=== PATIENT | male | born 1935 | race Native Hawaiian/Other Pacific Islander ===

== ENCOUNTER → 2017-03-05 | Outpatient (CLI) | payer OTHER ==
--- NOTE | ~2017-03-05 | CNG ---
[facility] [place] [address] CYTO-NONGYN REPORT PROCEDURE Name: MIAHSCAR SR Room #: REG PIOTR Antwan#: [id number] Admission: 03/05/17 Date of : 31 Discharge: Report #: [id number] Path Case #: [id number] CYTOPATHOLOGY REPORT COLLECTION DATE: 03/05/2017 RECEIVED DATE: 03/05/2017 SUBMITTING PHYS: Dr. Milly Marinelli OTHER PHYS: Dr. Giuseppe Newman CLINICAL HISTORY: Pleural Effusion SPECIMEN(S) RECEIVED: A.Pleural fluid * * * * * * * * * * * * FINAL DIAGNOSIS: A. Pleural fluid: - No malignant cells identified. Mesothelial cells are present along with acute and chronic inflammatory cells. PATHOLOGIST: Tory Camacho M.D. REPORT ELECTRONICALLY SIGNED BY: Tory Camacho M.D. DATE/TIME: 03/08/2017 16:53 * * * * * * * * * * * * GROSS PATHOLOGY: A. Pleural fluid: The specimen is submitted unfixed, labeled "Rojelio Dooleyo ". Received by the Cytology Department is 13 mL of cloudy yellow fluid. One ThinPrep slide and a formalin fixed cell block were prepared. (mm 03.05.2017) FARMER VEGETABLE(S): [facility]IS Shen[facility] INITIAL CPT CODE(S): A; 33580, 19694 Professional services performed by [facility] at [facility] [address] , [place] [address] Technical services performed by [facility] at [address] [place] [address]., [address], [place] [address]. [facility] [address] [place] [address], [facility] [address] [place] [address] PH[address]: [phone] [facility] [address] [place] [address] CYTO-NONGYN REPORT PROCEDURE Name: SCAR DOLOEY Room #: REG PIOTR Moncada#: [id number] Admission: 03/05/17 Date of : 33 Discharge: Report #: [id number] Path Case #: [id number] DIRECTOR: Will Fenton M.D. * * * END OF REPORT * * *
[2017-03-05 13:21] LABS: HEMATOCRIT 41.8 % (42.0-52.0); HEMOGLOBIN 13.9 gm/dL (14.0-18.0); MCH 30.6 pg (26.0-34.0); MCHC 33.2 g/dL (28.0-37.0); MCV 92.2 fL (80.0-100.0); RBC 4.53 mil/uL (4.50-6.00); RDW 15.1 % (10.5-14.5)
[2017-03-05 13:33] LABS: PROTIME 10.2 Seconds (9.3-11.4)
[2017-03-05 13:37] LABS: CALCIUM 9.4 mg/dL (8.5-10.1); CREATININE 0.7 mg/dL (0.7-1.3); POTASSIUM 4.2 mmol/L (3.5-5.1)
[2017-03-05 14:58] LABS: BF NUCLEATED CELLS 1567; BF RBC 2018
[2017-03-05 15:01] LABS: COLOR YELLOW; MANUAL DIFF YES; TOTAL VOLUME 60 mL
[2017-03-05 15:02] LABS: CLARITY SLIGHTLY CLOUDY
[2017-03-05 15:49] LABS: BF MACROPHAGE 7; BF NEUTROPHILS 9
[2017-03-05 20:08] LABS: BODY FLUID ALBUMIN 2.7 g/dL (()); BODY FLUID AMYLASE 56 U/L (()); BODY FLUID GLUCOSE 109 mg/dL (()); BODY FLUID LDH 161 IU/L (()); BODY FLUID PROTEIN 3.9 g/dL (())
== END | disposition home or self-care (01) ==
LOC: LABMALL 08:18
PROVIDERS: Internal Medicine Hematology & Oncology
DX: J90 Pleural effusion, not elsewhere classified (principal)

== ENCOUNTER → 2017-04-27 | Outpatient (CLI) | payer OTHER ==
[2017-04-27 14:19] LABS: PROTIME 10.4 Seconds (9.3-11.4)
== END | disposition home or self-care (01) ==
LOC: ULTRA 13:14
PROVIDERS: Internal Medicine Hematology & Oncology
DX: J90 Pleural effusion, not elsewhere classified (principal)

== ENCOUNTER → 2017-06-02 | Outpatient (CLI) | payer OTHER ==
--- NOTE | ~2017-06-02 | CNG ---
[facility] [place] [address] CYTO-NONGYN REPORT PROCEDURE Name: VERONICA DOOLEYAndres CELAYA Room #: REG [facility] [id number] Admission: 06/02/17 Date of : 31 Discharge: Report #: [id number] Path Case #: [id number] CYTOPATHOLOGY REPORT COLLECTION DATE: 06/02/2017 RECEIVED DATE: 06/03/2017 SUBMITTING PHYS: Dr. Milly Marinelli OTHER PHYS: Dr. Love Rose CLINICAL HISTORY: Pleural Effusion SPECIMEN(S) RECEIVED: A.Pleural fluid * * * * * * * * * * * * FINAL DIAGNOSIS: A. Pleural fluid: - No malignant cells identified. Mesothelial cells are present. - Acute and chronic inflammatory cells present. PATHOLOGIST: Jas Olivares M.D. REPORT ELECTRONICALLY SIGNED BY: Jas Olivares M.D. DATE/TIME: 06/04/2017 10:03 * * * * * * * * * * * * GROSS PATHOLOGY: A. Pleural fluid: The specimen is submitted unfixed, labeled "Scar Dooley SR". Received by the Cytology Department is 20 mL of cloudy reddish yellow fluid. One ThinPrep slide and a formalin fixed cell block were prepared. (mm 06.03.2017) BUTTON PUSHER(S): AMARIS Shen([facility] INITIAL CPT CODE(S): A; 92306, 05016 Professional services performed by [facility] at [facility] [address], [place] [address] Technical services performed by [facility] at [address] [place] [address]., [address], [place] [address]. [facility] [address] [place] [address], [facility] [address] [place] [address] PHONE: [phone] [facility] [address] [place] [address] CYTO-NONGYN REPORT PROCEDURE Name: SCAR DOOLEY SR Room #: REG PIOTR Moncada#: [id number] Admission: 06/02/17 Date of : 33 Discharge: Report #: [id number] Path Case #: [id number] DIRECTOR: Will Fenton M.D. * * * END OF REPORT * * *
[2017-06-02 14:09] LABS: HEMOGLOBIN 12.6 gm/dL (14.0-18.0); MCH 29.7 pg (26.0-34.0); MCHC 33.2 g/dL (28.0-37.0); MCV 89.4 fL (80.0-100.0); RBC 4.25 mil/uL (4.50-6.00); RDW 15.7 % (10.5-14.5); WBC 8.1 thou/uL (4.0-11.0)
[2017-06-02 14:13] LABS: CALCIUM 8.8 mg/dL (8.5-10.1); CREATININE 0.8 mg/dL (0.7-1.3); POTASSIUM 4.3 mmol/L (3.5-5.1)
[2017-06-02 14:22] LABS: INR 1.1; PROTIME 10.9 Seconds (9.3-11.4)
[2017-06-02 15:28] LABS: COLOR RED; TOTAL VOLUME 60 mL
[2017-06-02 15:29] LABS: CLARITY CLOUDY
[2017-06-02 17:17] LABS: MANUAL DIFF YES
[2017-06-02 17:19] LABS: BF NEUTROPHILS 11; BF NUCLEATED CELLS 708; BF RBC 23623
[2017-06-02 17:20] LABS: BF MACROPHAGE 7
[2017-06-03 12:07] LABS: BODY FLUID ALBUMIN 2.2 g/dL (()); BODY FLUID AMYLASE 54 U/L (()); BODY FLUID GLUCOSE 105 mg/dL (()); BODY FLUID LDH 206 IU/L (()); BODY FLUID PROTEIN 3.2 g/dL (())
== END | disposition home or self-care (01) ==
LOC: LABMALL 12:59 → ULTRA 12:59
PROVIDERS: Internal Medicine Hematology & Oncology
DX: J90 Pleural effusion, not elsewhere classified (principal)

== ENCOUNTER → 2017-07-19 | Outpatient (CLI) | payer OTHER ==
[~2017-07-19] MED LIST: ATIVAN1 MG PO; CELEXA20 MG PO; CIPROFLOXACIN250 M2 PO; FLOMAX0.4 MG PO; LASIX 20 MG TAB20 MG PO; LIPITOR80 MG PO; PLAVIX 75 MG TA75 M1 PO; PROSCAR 5MG TABL5 MG PO; SYNTHROID50 MCG PO; ZANTAC 150MG T150 MG PO
[2017-07-19 13:49] LABS: HEMATOCRIT 37.1 % (42.0-52.0); HEMOGLOBIN 12.3 gm/dL (14.0-18.0); MCH 28.6 pg (26.0-34.0); MCHC 33.1 g/dL (28.0-37.0); MCV 86.5 fL (80.0-100.0); RBC 4.29 mil/uL (4.50-6.00); RDW 15.4 % (10.5-14.5); WBC 6.2 thou/uL (4.0-11.0)
[2017-07-19 13:55] LABS: CALCIUM 8.7 mg/dL (8.5-10.1); CREATININE 0.8 mg/dL (0.7-1.3); POTASSIUM 4.1 mmol/L (3.5-5.1)
[2017-07-19 13:59] LABS: INR 1.1; PROTIME 11.1 Seconds (9.3-11.4)
== END | disposition home or self-care (01) ==
LOC: ULTRA 13:06
PROVIDERS: Internal Medicine Hematology & Oncology
DX: J90 Pleural effusion, not elsewhere classified (principal)

== ENCOUNTER → 2017-08-20 | Outpatient (CLI) | payer OTHER ==
[2017-08-20 13:16] LABS: HEMATOCRIT 35.9 % (42.0-52.0); HEMOGLOBIN 11.7 gm/dL (14.0-18.0); MCH 27.2 pg (26.0-34.0); MCHC 32.6 g/dL (28.0-37.0); MCV 83.4 fL (80.0-100.0); RBC 4.31 mil/uL (4.50-6.00); RDW 15.5 % (10.5-14.5); WBC 5.8 thou/uL (4.0-11.0)
[2017-08-20 13:29] LABS: PROTIME 10.7 Seconds (9.3-11.4)
[2017-08-20 13:34] LABS: CALCIUM 8.9 mg/dL (8.5-10.1); CREATININE 0.8 mg/dL (0.7-1.3)
== END | disposition home or self-care (01) ==
LOC: ULTRA 10:11
PROVIDERS: Internal Medicine Hematology & Oncology
DX: J90 Pleural effusion, not elsewhere classified (principal)

== ENCOUNTER → 2017-09-07 | Outpatient (CLI) | payer OTHER ==
[~2017-09-07] MED LIST changes: -CIPROFLOXACIN250 M2 PO
== END | disposition home or self-care (01) ==
LOC: ULTRA 08:42 → EDSTATUS 08:48 → ULTRA 13:38
DX: J90 Pleural effusion, not elsewhere classified (principal); Z88.2 Allergy status to sulfonamides; Z88.8 Allergy status to other drugs, medicaments and biological substances; Z79.899 Other long term (current) drug therapy

== ENCOUNTER → 2017-09-08 | Outpatient (CLI) | payer OTHER ==
[~2017-09-08] VITALS: Ht 165.1 cm; Wt 55.8 kg
[~2017-09-08] MED LIST changes: +CIPROFLOXACIN250 M2 PO
--- NOTE | ~2017-09-08 | 2DMMODE ---
[facility] [address] [place] [address] 2 D/M-MODE ECHOCARDIOGRAM Name: SCAR DOOLEY Room #: REG [facility] [id number] Admission: 09/08/17 Attend Phys: Milly Marinelli Discharge: Date of : 31 Date of Service: 09/08/17 1039 Report #: [id number] THIS REPORT FOR: //name// APPROVED REPORT Study performed: 09/08/2017 08:28:44 EXAM: Comprehensive 2D, Doppler, and color-flow Echocardiogram Patient Location: Out-Patient Status: routine BSA: 1.61 HR: 77 bpm BP: 120/68 mmHg Rhythm: NSR/Irregular Other Information Study Quality: Adequate Indications Indication: B--Cell Lymphoma. Hx: TN, Stents x3 2D Dimensions RVDd: 33.51 mm LVEF(%): 55.33 (>50%) IVSd: 8.10 (7-11mm) LVOT Diam: 18.88 (18-24mm) LVDd: 44.76 mm PWd: 10.53 (7-11mm) Ascending Ao: 33.99 (22-36mm) LVDs: 31.94 (25-40mm) Aortic Root: 31.90 mm Doll's LVEF: 55.33 % Volumes Left Atrial Volume (Systole) Single Plane 4CH: 46.05 mL Single Plane 2CH: 39.43 mL LA ESV Index: 33.00 mL/m2 Aortic Valve AoV Peak Tico.: 1.56 m/s AO Peak Gr.: 9.76 mmHg LVOT Max P.54 mmHg LVOT Max V: 0.80 m/s PEÑA Vmax: 1.43 cm2 Mitral Valve E/A Ratio: 0.6 MV Decel. Time: 160.63 ms [facility] [place] [address] 2 D/M-MODE ECHOCARDIOGRAM Name: SCAR DOOLEY Room #: [facility] KATHIE Moncada#: [id number] Admission: 09/08/17 Attend Phys: Milly Marinelli Discharge: Date of : 31 Date of Service: 09/08/17 1039 Report #: [id number] MV E Max Tico.: 0.83 m/s MV A Tico.: 1.31 m/s MV PHT: 46.58 ms Pulmonary Valve PV Peak Tico.: 0.88 m/s PV Peak Gr.: 3.09 mmHg Pulmonary Vein P Vein S: 0.49 m/s P Vein A: 0.28 m/s P Vein D: 0.38 m/s P Vein A Dur.: 124.6 msec P Vein S/D Ratio: 1.29 Tricuspid Valve TR Peak Tico.: 2.79 m/s RAP Estimate: 5.00 mmHg TR Peak Gr.: 31.20 mmHg PA Pressure: 36.00 mmHg Left Ventricle The left ventricle is normal size. There is normal left ventricular wall thickness. Left ventricular systolic function is mild to moderately decreased. LVEF is 45%. Grade I - abnormal relaxation pattern. Right Ventricle The right ventricle is normal size. The right ventricular systolic function is normal. Atria The left atrium size is normal. The right atrium size is normal. Aortic Valve Aortic valve is thickened and calcified. Mild-moderate aortic regurgitation. There is no aortic valvular stenosis. Mitral Valve Mild mitral annular calcification Mild mitral regurgitation. No evidence of mitral valve stenosis. Tricuspid Valve The tricuspid valve is normal in structure. Mild tricuspid regurgitation. Estimated PAP 36 mmHg. Pulmonic Valve Pulmonic valve is not well visualized. Mild pulmonic regurgitation. [address] [address] 2 D/M-MODE ECHOCARDIOGRAM Name: VERONICA DOOLEYO Room #: REG KATHIE Moncada#: [id number] Admission: 09/08/17 Attend Phys: Milly Marinelli Discharge: Date of : 31 Date of Service: 09/08/17 1039 Report #: [id number] Great Vessels The aortic root is normal in size. The ascending aorta is normal in size. IVC is normal in size and collapses >50% with inspiration. Pericardium There is no pericardial effusion. Right pleural effusion noted. <Conclusion> Left ventricular systolic function is mild to moderately decreased. LVEF is 45%. Grade I diastolic dysfunction Aortic valve is thickened and calcified. No aortic valvular stenosis; mild-moderate insufficiency. Mild mitral annular calcification. Mild mitral regurgitation. Pulmonary artery pressure of 36mmHg There is no pericardial effusion. <ELECTRONICALLY SIGNED> By: Joby Vazquez MD, FACC 09/08/17 1039 1039 1039 Joby Vazquez MD, FACC /INF
[2017-09-08 10:41] VITALS: BP 105/46
[2017-09-08 10:42] LABS: MCH 26.3 pg (26.0-34.0); MCHC 32.5 g/dL (28.0-37.0); MCV 80.8 fL (80.0-100.0); RBC 4.95 mil/uL (4.50-6.00); RDW 16.5 % (10.5-14.5); WBC 5.8 thou/uL (4.0-11.0)
[2017-09-08 10:57] LABS: CALCIUM 9.4 mg/dL (8.5-10.1); CREATININE 0.9 mg/dL (0.7-1.3); POTASSIUM 3.7 mmol/L (3.5-5.1)
[2017-09-08 11:00] LABS: APTT 31.7 Seconds (24.5-32.8); INR 1.1; PROTIME 10.8 Seconds (9.3-11.4)
[2017-09-08 13:00] VITALS: BP 126/54
== END ==
LOC: CV 09-01 11:34
PROVIDERS: Radiology Diagnostic Radiology
DX: I50.32 Chronic diastolic (congestive) heart failure (principal); C85.10 Unspecified B-cell lymphoma, unspecified site; I34.8 Other nonrheumatic mitral valve disorders; I34.0 Nonrheumatic mitral (valve) insufficiency; J90 Pleural effusion, not elsewhere classified

== ENCOUNTER → 2017-09-21 | Outpatient (CLI) | payer OTHER ==
[~2017-09-21] MED LIST changes: -CIPROFLOXACIN250 M2 PO
[2017-09-21 14:03] LABS: HEMATOCRIT 37.4 % (42.0-52.0); MCH 25.8 pg (26.0-34.0); MCHC 32.2 g/dL (28.0-37.0); MCV 80.1 fL (80.0-100.0); RBC 4.66 mil/uL (4.50-6.00); RDW 17.2 % (10.5-14.5)
[2017-09-21 14:10] LABS: CALCIUM 8.7 mg/dL (8.5-10.1); CREATININE 0.7 mg/dL (0.7-1.3); POTASSIUM 3.9 mmol/L (3.5-5.1)
[2017-09-21 14:22] LABS: PROTIME 10.7 Seconds (9.3-11.4)
== END | disposition home or self-care (01) ==
LOC: ULTRA 09:44 → LABMALL 13:37 → ULTRA 15:40
PROVIDERS: Internal Medicine Hematology & Oncology
DX: J90 Pleural effusion, not elsewhere classified (principal)

== ENCOUNTER 2017-09-24 15:44 | Emergency (ER) | payer OTHER ==
[~2017-09-24] VITALS: Ht 170.2 cm; Wt 55.3 kg
--- NOTE | ~2017-09-24 | EKG ---
[place] [address] [place] [address] ELECTROCARDIOGRAM REPORT Name: SCAR DOOLEY [facility] [id number] Admission: 09/24/17 Attend Phys: Discharge: 09/24/17 Date of : 33 Report #: [id number] THIS REPORT FOR: //name// [facility] ED Test Date: 2017-09-24 Test Time: 15:56:15 Pat Name: SCAR DOOLEY Department: Room: 170 Gender: M Strategic Sourcing Manager: MZOOK : 1935 Requested By: Debbie Isabel Order Number: [id number] MD: Abdi Ashley Measurements Intervals [place] Rate: 76 P: 0 TX: 178 QRS: -19 QRSD: 90 T: 53 QT: 420 QTc: 473 Interpretive Statements Sinus rhythm Ventricular trigeminy LVH with secondary repolarization abnormality Compared to ECG 12/06/2005 13:07:27 Ventricular premature complex(es) now present Left ventricular hypertrophy now present Electronically Signed On 09-25-2017 10:29:04 CDT by Abdi Ashley [email or web address] <ELECTRONICALLY SIGNED> By: Abdi Ashley MD 09/25/17 1029 1556 1556 Abdi Ashley MD /MARGARITA
[2017-09-24 15:52] VITALS: BP 103/54
[2017-09-24 16:22] LABS: HEMATOCRIT 32.9 % (42.0-52.0); HEMOGLOBIN 10.7 gm/dL (14.0-18.0); MCH 26.1 pg (26.0-34.0); MCHC 32.3 g/dL (28.0-37.0); MCV 80.7 fL (80.0-100.0); PLATELET COUNT 148 thou/uL (150-400); RBC 4.08 mil/uL (4.50-6.00); RDW 17.4 % (10.5-14.5); WBC 11.3 thou/uL (4.0-11.0)
[2017-09-24 16:28] LABS: ANION GAP 2 mmol/L (7-16); BUN 12 mg/dL (7-18); CALCIUM 8.5 mg/dL (8.5-10.1); CHLORIDE 104 mmol/L (98-107); CO2 33 mmol/L (21-32); CREATININE 0.8 mg/dL (0.7-1.3); GLUCOSE 114 mg/dL (74-106); SODIUM 139 mmol/L (136-145)
[2017-09-24 16:36] LABS: TROPONIN-I < 0.04 ng/mL (<0.06)
[2017-09-24 17:00] LABS: ABSOLUTE NEUTROPHILS 8.9 thou/uL (1.4-8.2); ANISOCYTOSIS 1+; HYPOCHROMASIA 1+; POLYCHROMASIA OCCASIONAL
[2017-09-24 17:40] VITALS: BP 113/56
[2017-09-24 18:00] VITALS: BP 106/59
== END 2017-09-24 18:01 | disposition left against medical advice (07) ==
LOC: ER 15:44 → EROBS 17:20 → ER 17:20
PROVIDERS: Emergency Medicine
DX: J90 Pleural effusion, not elsewhere classified (principal); C85.90 Non-Hodgkin lymphoma, unspecified, unspecified site; Z88.1 Allergy status to other antibiotic agents; Z88.2 Allergy status to sulfonamides

== ENCOUNTER → 2017-09-27 | Outpatient (CLI) | payer OTHER ==
[~2017-09-27] VITALS: Ht 157.5 cm; Wt 54.4 kg
[2017-09-27 14:28] VITALS: BP 116/71
== END | disposition home or self-care (01) ==
LOC: RAD 12:13
DX: J90 Pleural effusion, not elsewhere classified (principal); E78.5 Hyperlipidemia, unspecified; K21.9 Gastro-esophageal reflux disease without esophagitis; Z98.890 Other specified postprocedural states; Z85.72 Personal history of non-Hodgkin lymphomas; Z88.2 Allergy status to sulfonamides; Z88.8 Allergy status to other drugs, medicaments and biological substances; Z79.899 Other long term (current) drug therapy

== ENCOUNTER 2017-10-11 11:11 | Inpatient (IN) | payer OTHER ==
[~2017-10-11] VITALS: Ht 160 cm; Wt 61.5 kg
--- NOTE | ~2017-10-11 | HC ---
[facility] [place] [address] CONSULTATION Name: SCAR DOOLEY Room #: 354-P [facility] IN M.R.#: [id number] Admission: 10/11/17 Attend Phys: Raz Robledo MD Discharge: 10/19/17 Date of : 33 Report #: [id number] THIS REPORT FOR: //name// CC: OLIVIA physician/PCP Raz Robleod DATE OF SERVICE: 10/15/2017 HISTORY OF PRESENT ILLNESS: The patient is an 82-year-old white male with history of lymphoma, prior chemotherapy, recurrent pleural effusions with PleurX catheter. He has had problems with increased weakness, was barely able to stand. He was admitted to [facility]. Noted to have sepsis, thought to be secondary to possible pseudomonas pneumonia. Blood cultures were negative, but he is noted to be growing a gram-negative ana cristina in his pleural fluid. CT chest showed a moderate pleural effusion, right greater than left and he went down for a right thoracentesis on 10/14/2017, draining 1300 mL. We are seeing him in rehabilitation medicine consultation. PAST MEDICAL HISTORY: Includes insomnia, prostate surgery, diffuse gastritis, mild hypertension, and lymphoma. ALLERGIES: CIPROFLOXACIN, SULFAMETHOXAZOLE, TRIMETHOPRIM. SOCIAL HISTORY: Lives with his at their daughter's house, 2 steps in, the spouse helps some with tub transfers. The patient's grandson noted that the patient probably should have used a cane or some type of gait aid premorbidly, but that he is "stubborn" and that he likes to get up on his own without any type of gait aids. REVIEW OF SYSTEMS: Some generalized weakness. He was not on nasal prong O2 premorbidly. PHYSICAL EXAMINATION: GENERAL: An 82-year-old thin white male, in no obvious distress. VITAL SIGNS: Last recorded temperature 98.7, pulse 92, respirations 16, blood pressure 108/57. NEUROLOGIC: He is alert, nasal prong O2 is in place, currently on 2 liters. He has functional range of motion of both upper extremities. Strength is grade 4- to 3+/5. DTRs are trace to 1. Lower extremities, no focal calf swelling. Functional range of motion with strength grade 3+/5 to 4-/5. Sit to stand is max assist. Gait was 6 feet, max assist. ASSESSMENT: An 82-year-old Greek speaking male with the following problem list: 1. Medical complexity with generalized debilitation. 2. Sepsis secondary [place] [address] CONSULTATION Name: SCAR DOOLEY Room #: 354-P [facility] IN M.R.#: [id number] Admission: 10/11/17 Attend Phys: Raz Robledo MD Discharge: 10/19/17 Date of : 31 Report #: [id number] 3. Recurrent pleural effusions with PleurX catheter, status post right thoracentesis, 1300 mL 10/14/2017. 4. Lymphoma. 5. Hyperlipidemia. 6. Hypothyroidism. PLAN: Progress notes indicate guarded overall prognosis. Continues full code. Therapies are working on transfers, functional mobility and ADLs. Try and improve overall strength and endurance. Insurance will need to be checked regarding rehab therapy options. Family would like to take him back to the home setting, if he can get stronger after some rehabilitation intervention. We will be glad to follow along with you regarding his rehab therapy needs. <ELECTRONICALLY SIGNED> By: Teddy Borja MD 10/20/17 1504 1232 06 Teddy Borja MD /PMT
--- NOTE | ~2017-10-11 | CNG ---
[facility] [place] [address] CYTO-NONGYN REPORT PROCEDURE Name: SCAR DOOLEY SR Room #: 361-P ADM IN M.R.#: [id number] Admission: 10/11/17 Date of : 31 Discharge: Report #: [id number] Path Case #: [id number] CYTOPATHOLOGY REPORT COLLECTION DATE: 10/13/2017 RECEIVED DATE: 10/14/2017 SUBMITTING PHYS: Dr. Nishant Domínguez OTHER PHYS: Dr. Raz Robledo CLINICAL HISTORY: Pleural effusion, pneumonia, sepsis SPECIMEN(S) RECEIVED: A.Pleural fluid, RLL * * * * * * * * * * * * FINAL DIAGNOSIS: A. Pleural fluid, RLL: - Predominantly acute inflammatory cells, necrosis and fibrinous debris are identified with rare admixed reactive mesothelial cells present. 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 The patient also has a history a pleural mass biopsy showing B cell lymphoma ([id number]). Clinical and radiographic correlation is recommended. PATHOLOGIST: Marilee Aguilar M.D. REPORT ELECTRONICALLY SIGNED BY: Marilee Aguilar M.D. DATE/TIME: 10/15/2017 14:22 * * * * * * * * * * * * GROSS PATHOLOGY: A. Pleural fluid, RLL: The specimen is submitted unfixed, labeled "Heather Scar Sr". Received by the Cytology Department is five mL of cloudy yellow fluid. One ThinPrep slide and a formalin fixed cell block were prepared. (mm 10.14.2017) LICENSED APPRAISER(S): AMARIS Martínez(ASCP) INITIAL CPT CODE(S): A; 64460, 09067 Professional services performed by [facility] at [facility] [address] [place] [address] Technical services performed by [facility] at [address] [place] [address], [address], [place] [address]. [facility] [address] [place] [address] CYTO-NONGYN REPORT PROCEDURE Name: SCAR DOOLEY Room #: 361-P [facility] IN M.R.#: [id number] Admission: 10/11/17 Date of : 31 Discharge: Report #: [id number] Path Case #: [id number] [facility] [address] [place] [address], [address] [place] [address] PHONE: [phone] DIRECTOR: Will Fenton M.D. * * * END OF REPORT * * *
--- NOTE | ~2017-10-11 | EKG ---
[address] [address] ELECTROCARDIOGRAM REPORT Name: VERONICA DOOLEYO Room #: 361-P ADM IN M.R.#: [id number] Admission: 10/11/17 Attend Phys: Raz Robledo MD Discharge: Date of : 33 Report #: [id number] THIS REPORT FOR: //name// [facility] ED Test Date: 2017-10-11 Test Time: 11:27:21 Pat Name: SCAR DOOLEY Department: Room: [facility] Gender: M Retail Greeter: JENN : 1935 Requested By: Nomi Shepherd Order Number: [id number] MD: Joby Vazquez Measurements Intervals [place] Rate: 103 P: 115 IN: 175 QRS: -18 QRSD: 91 T: 39 QT: 357 QTc: 468 Interpretive Statements Sinus tachycardia ventricular premature complexes Left ventricular hypertrophy Poor R wave progression Compared to ECG 09/24/2017 15:56:15 No significant change was found Electronically Signed On 10-11-2017 17:16:36 CDT by Joby Vazquez [email or web address] <ELECTRONICALLY SIGNED> By: Joby Vazquez MD, [facility] 10/11/17 1716 1127 1127 Joby Vazquez MD, [facility] /EPI
--- NOTE | ~2017-10-11 | HC ---
[facility] [place] [address] CONSULTATION Name: SCAR DOOLEY Room #: 361-P ADM IN M.R.#: [id number] Admission: 10/11/17 Attend Phys: Raz Robledo MD Discharge: Date of : 31 Report #: [id number] THIS REPORT FOR: //name// CC: HELIO BAKER physician/PCP Tristian SUGGS MD DATE OF SERVICE: 10/12/2017 REASON FOR CONSULTATION: Leukocytosis and history of lymphoma. HISTORY OF PRESENT ILLNESS: The patient is interviewed in the presence of his daughter, Peggy, who provides quite a bit of the interpretation as the patient speaks mostly Wolof. He understands some of it, but cannot speak it very well. The patient has a history of non-Hodgkin lymphoma since about 2003 if I understand correctly. He has been on different chemotherapy regimens, evidently recently had had some progression and currently increasing pleural effusion on the right requiring thoracentesis and then also had some type of masses below his left eye like in the lacrimal gland. He had been begun on chemotherapy. I believe his Rituxan, Cytoxan, vincristine, prednisone and Neulasta about 2 cycles ago. Last cycle was about 09/29/2017. The patient's son reports that the mass or fullness below his left eye began shrinking within the first week of therapy. The patient is now admitted for having chills yesterday and shortness of breath. In the ER, he was found to have leukocytosis and has run a fever since then and is also question about pneumonia. It sounds like the patient denies really any significant pain, swallowing troubles, does have chronic constipation, no blood in his urine or stool, did have some ankle swelling, which has been improved lately. Does have some fatigue. Does have some shortness of air. He has not had any nausea or vomiting to speak of. Also, it sounds like he is having no dysuria. He does have some bladder difficulties, so he was a little bit slow in his urine, but not too bad. PAST MEDICAL HISTORY: Appears to be notable for the history of the non-Hodgkin lymphoma, suspect low grade, but I am not sure, wanted to clarify this, recently status post R-CHOP with Neulasta chemotherapy. Also, a history of coronary artery disease with stents, on Plavix. Also, history of mood disorder, on citalopram. Also, hypothyroid with levothyroxine. Also, bladder difficulties on tamsulosin and finasteride. Also, hyperlipidemia with atorvastatin. He also has a history of surgery on the right foot, insomnia, hernia, diffuse gastritis [address] [address] CONSULTATION Name: SCAR DOOLEY Room #: 361-P [facility] IN M.R.#: [id number] Admission: 10/11/17 Attend Phys: Raz Robledo MD Discharge: Date of : 31 Report #: [id number] in the past, hypertension in the past, the lymphoma, cystoscopy with TURP and Pleur-evac placement and a port recently. FAMILY HISTORY: No one recently diagnosed with cancer if I understand correctly. SOCIAL HISTORY: Nonsmoker, no significant alcohol. 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 ALLERGIES: HE HAS HAD DIFFICULTIES WITH CIPROFLOXACIN, SULFAMETHOXAZOLE AND TRIMETHOPRIM. MEDICATIONS: At home included clopidogrel, ranitidine, citalopram, furosemide, lorazepam, levothyroxine, tamsulosin, finasteride and atorvastatin. Here in the hospital, his current medications include atorvastatin calcium 80 mg daily, finasteride 5 mg daily, tamsulosin 0.4 daily, levothyroxine 25 mcg daily, clopidogrel 75 mg daily, cefepime 2 g q. 12, vancomycin 750 mg q. 12, lorazepam 5 mg at bedtime, citalopram 20 mg b.i.d., eye drops, IV fluids. PHYSICAL EXAMINATION: GENERAL: The patient appears his stated age. VITAL SIGNS: Height is 5 feet 3 inches, 160 cm, weight 120 pounds, which is 54.4 kilograms. MOOD: The patient is pleasant, converses with his daughter, is able to nod his head appropriately. NEUROLOGIC: Face symmetric. Moving extremities. LUNGS: Right base, slightly dull. LYMPHATICS: No palpable lymph nodes in the supraclavicular or cervical region. Actually, does have some very small lymph nodes measuring maybe 0.5 cm both, maybe 4 or 5 in each side. Inguinal, I do not detect lymph nodes. ABDOMEN: Scaphoid. No hepatosplenomegaly or masses. EXTREMITIES: Without clubbing, cyanosis. There is some trace edema. LABORATORY DATA: Here in the hospital includes the pleural fluid, which had red cells as well as 43% neutrophils in the differential, described as cloudy. His BUN is 15, creatinine 0.7, magnesium 1.7, alkaline phosphatase 168, albumin 1.9. White count yesterday was 34.7, today 29.7, hemoglobin 9.5, MCV 80.2, platelets 148, has 75% neutrophils, 23% bands, 2 monocytes. UA is pending. Under micro, it is reported as many PMNs, many red cells, many Gram-negative rods on concentrated specimen, reportedly from the pleural. IMAGING: The patient had a CT chest that shows diffuse huge recurrent right pleural effusion with a PleurX catheter in place with complete collapse of the right middle and right lower lobe, atelectasis and pneumonitis on the left side. He has had previous thoracentesis on 09/07/2017 and 09/21/2017. They do not seem to make any comment about any enlarged lymph nodes. [facility] [address] [place] [address] CONSULTATION Name: SCAR DOOLEY Room #: 361-P [facility] IN ..#: [id number] Admission: 10/11/17 Attend Phys: Raz Robledo MD Discharge: Date of : 31 Report #: [id number] ASSESSMENT AND PLAN: 1. Non-Hodgkin lymphoma, apparently responding to chemotherapy. 2. Leukocytosis, possibly related to Gram-negative rods and pleural effusion and infection and also the Neulasta. Continue monitoring. 3. Fever/empyema versus infected pleural effusion. We will defer to Infectious Disease with Gram-negative rods from pleural effusion whether this needs to be pulled or whether it could be cleared with antibiotics. We will need to balance need to drain fluid versus clearing the infection. 4. Pleural effusion. Hopefully, this may improve with responding lymphoma. 5. Hypertension, per others. 6. Benign prostatic hypertrophy, medications per others. 7. Coronary artery disease with stents, on Plavix. May consider holding they wish to remove catheter. 8. Anemia. Monitor. 9. Hyperlipidemia, statin. 10. Sleep disorder. According to daughter, has reported taking 5 mg of lorazepam at night for about the last 20-30 years. 11. Hypothyroid. Replace. We will follow with you. <ELECTRONICALLY SIGNED> By: Kingston Hardwick MD 10/13/17 0845 0831 1008 Kingston Hardwick MD /nt
--- NOTE | ~2017-10-11 | HC ---
[facility] [place] [address] CONSULTATION Name: SCAR DOOLEY Room #: 361-P ADM IN M.R.#: [id number] Admission: 10/11/17 Attend Phys: Raz Robledo MD Discharge: Date of : 33 Report #: [id number] THIS REPORT FOR: //name// CC: OLIVIA physician/PCP Raz Robledo REASON FOR CONSULTATION: I was asked to evaluate concerning fever and cough. HISTORY OF PRESENT ILLNESS: The patient is an 82-year-old with longstanding lymphoma, now with relapse on chemotherapy, who has recurring right pleural effusion, now with a PleurX catheter in place for the last 2 weeks. He has had increasing cough with purulent sputum production. Fever started yesterday, not improving; therefore hospitalized for further evaluation. The patient is Kuwaiti speaking. I was able to gain history with Kuwaiti-speaking relative and nurse at the bedside. No pleuritic chest pain. Overall, just feels well. Anorexic. He has had weight loss. No travel otherwise. No history of tuberculosis. PAST MEDICAL HISTORY: Constipation, right foot surgery, insomnia, inguinal hernias, prostate surgery, gastritis, hypertension, herniorrhaphy, TURP, lymphoma, Port-A-Cath, Pleur-evac. ALLERGIES: CIPROFLOXACIN, BACTRIM. MEDICATIONS: Plavix, Zantac, Celexa, Lasix, Ativan, Synthroid, Flomax, Proscar, Lipitor, and his chemotherapy, I am unclear as to the agent. In the Emergency Room, he was given vancomycin and Zosyn, now on vancomycin and cefepime. FAMILY HISTORY: Noncontributory. SOCIAL HISTORY: Nonsmoker, no significant alcohol intake. REVIEW OF SYSTEMS: No nausea, vomiting, diarrhea. More constipated. No dysuria. No rash or decubiti. PHYSICAL EXAMINATION: VITAL SIGNS: Temperature is 37.3, hemodynamically stable with heart rate 97, respiratory rate 20, blood pressure 111/56. He is 93% on 2 liters. He was cachectic, alert and cooperative. HEENT: Edentulous. NECK: Supple. CHEST: Right chest Port-A-Cath site unremarkable. Right chest PleurX catheter site unremarkable. LUNGS: Decreased breath sounds in the right base posteriorly with consolidation in the mid lung. He had coarse breath sounds in the left base posteriorly. HEART: Regular. ABDOMEN: Soft and nontender. [address] [address] CONSULTATION Name: SCAR DOOLEY Room #: 361-P [facility] IN .R.#: [id number] Admission: 10/11/17 Attend Phys: Raz Robledo MD Discharge: Date of : 33 Report #: [id number] EXTREMITIES: Trace peripheral edema to both feet. NEUROLOGIC: Nonfocal. LABORATORY STUDIES: Chest x-ray, left basilar atelectasis, right effusion with right middle lobe infiltrate. Lactate 1.5. ABG on 2 liters showed a pO2 of 67, pCO2 of 34, pH 7.4. Hemoglobin 11.6, platelet count 154,000, white count of 34.7 with 75% segs, 23% bands. BNP was 995, sodium 133, potassium 4.3, bicarbonate 27, creatinine 1. CT scan of the chest is pending. IMPRESSION: An 82-year-old with relapse of his lymphoma with significant disease in the right chest and recurring effusions. Now with fever, right lung infiltrate, possibly infected pleural space with productive cough. I am awaiting further culture results from both blood and urine. He does have a Port-A-Cath. No other intraabdominal infection suspected at this time. RECOMMENDATION: We will continue his antibiotic coverage with vancomycin and cefepime. Repeat his blood cultures, check sputum culture, culture of the right pleural fluid, urinalysis and urine culture. Repeat his laboratory studies with liver function tests, creatinine and CBC. I have discussed the patient with family. <ELECTRONICALLY SIGNED> By: Nishant Domínguez MD 10/12/17 0910 [id number] Nishant Domínguez MD /nt
[2017-10-11 11:14] VITALS: BP 85/43
[2017-10-11 12:22] LABS: HEMOGLOBIN 11.6 gm/dL (14.0-18.0); MCH 26.5 pg (26.0-34.0); MCHC 33.2 g/dL (28.0-37.0); MCV 79.8 fL (80.0-100.0); PLATELET COUNT 154 thou/uL (150-400); RBC 4.38 mil/uL (4.50-6.00); WBC 34.7 thou/uL (4.0-11.0)
[2017-10-11 12:35] LABS: ANION GAP 7 mmol/L (7-16); BUN 15 mg/dL (7-18); CALCIUM 8.1 mg/dL (8.5-10.1); CHLORIDE 99 mmol/L (98-107); CO2 27 mmol/L (21-32); GLUCOSE 124 mg/dL (74-106); POTASSIUM 4.3 mmol/L (3.5-5.1); SODIUM 133 mmol/L (136-145)
[2017-10-11 12:40] LABS: TROPONIN-I < 0.04 ng/mL (<0.06)
[2017-10-11 12:53] LABS: ANISOCYTOSIS 2+; MICROCYTES 1+; PLATELET ESTIMATE NORMAL; POLYCHROMASIA SLIGHT
[2017-10-11 13:16] LABS: BE(vivo) -2.6 mmol/L (-2 to +3); HCO3 21.4 mmol/L (22.0-26.0); PCO2 34.4 mmHg (35.0-45.0); PO2 67.4 mmHg (80.0-100.0); pH 7.412 (7.360-7.450); sO2 93.8 % (92.0-98.0)
[2017-10-11 15:22] LABS: BF NUCLEATED CELLS 819; BF RBC 3214; TOTAL VOLUME 10 mL
[2017-10-11 15:23] LABS: CLARITY SLIGHTLY CLOUDY; COLOR YELLOW
[2017-10-11 15:26] VITALS: BP 115/59
[2017-10-11 15:38] VITALS: BP 111/56
[2017-10-11 16:00] LABS: BF MACROPHAGE 1; BF NEUTROPHILS 43; SOURCE PLEURAL
[2017-10-11 20:00] VITALS: BP 112/61
[2017-10-12] VITALS (7 sets, daily range): BP systolic 106–120; BP diastolic 47–73
[2017-10-12 05:39] LABS: HEMATOCRIT 29.2 % (42.0-52.0); MCHC 32.4 g/dL (28.0-37.0); MCV 80.2 fL (80.0-100.0); PLATELET COUNT 148 thou/uL (150-400); RBC 3.64 mil/uL (4.50-6.00); RDW 21.8 % (10.5-14.5); WBC 29.7 thou/uL (4.0-11.0)
[2017-10-12 05:51] LABS: HEMOGLOBIN 9.5 gm/dL (14.0-18.0)
[2017-10-12 05:55] LABS: ALBUMIN 1.9 g/dL (3.4-5.0); CALCIUM 7.5 mg/dL (8.5-10.1); CREATININE 0.7 mg/dL (0.7-1.3); POTASSIUM 4.3 mmol/L (3.5-5.1); TOTAL BILIRUBIN 0.8 mg/dL (<0.1-1.0); TOTAL PROTEIN 4.1 g/dL (6.4-8.2)
[2017-10-12 07:07] LABS: ABSOLUTE NEUTROPHILS 27.9 thou/uL (1.4-8.2); ANISOCYTOSIS 2+; TOXIC GRANULATION 2+
[2017-10-12 14:22] LABS: URINE BILIRUBIN NEGATIVE (Negative); URINE BLOOD TRACE (Negative); URINE CLARITY CLEAR; URINE COLOR YELLOW; URINE GLUCOSE-RANDOM* NEGATIVE (Negative); URINE KETONES NEGATIVE (Negative); URINE LEUKOCYTES-REFLEX NEGATIVE (Negative); URINE NITRITE-REFLEX NEGATIVE (Negative); URINE PROTEIN (DIPSTICK) NEGATIVE (Negative); URINE SPECIFIC GRAVITY 1.025 (1.005-1.035); URINE UROBILINOGEN 0.2 E.U./dl (0.2-1.0)
[2017-10-13 03:30] VITALS: BP 103/58
[2017-10-13 06:36] LABS: CALCIUM 7.8 mg/dL (8.5-10.1); CREATININE 0.6 mg/dL (0.7-1.3); MAGNESIUM 1.8 mg/dL (1.8-2.4); POTASSIUM 4.1 mmol/L (3.5-5.1)
[2017-10-13 06:42] LABS: HEMATOCRIT 26.4 % (42.0-52.0); HEMOGLOBIN 8.7 gm/dL (14.0-18.0); MCH 26.1 pg (26.0-34.0); MCHC 32.8 g/dL (28.0-37.0); MCV 79.5 fL (80.0-100.0); RBC 3.32 mil/uL (4.50-6.00); RDW 21.2 % (10.5-14.5); WBC 24.5 thou/uL (4.0-11.0)
[2017-10-13 07:56] VITALS: BP 109/59
[2017-10-13 12:22] VITALS: BP 106/67
[2017-10-13 17:11] VITALS: BP 99/67
[2017-10-13 17:19] LABS: COLOR YELLOW; SOURCE PLEURAL; TOTAL VOLUME 15 mL
[2017-10-13 17:20] LABS: CLARITY SLIGHTLY CLOUDY
[2017-10-13 17:39] LABS: BF NUCLEATED CELLS 1263; BF RBC 1808
[2017-10-13 18:50] LABS: BF MACROPHAGE 1; BF NEUTROPHILS 96
[2017-10-13 19:50] VITALS: BP 112/51
[2017-10-14 04:00] VITALS: BP 117/72
[2017-10-14 04:42] LABS: CALCIUM 7.7 mg/dL (8.5-10.1); CREATININE 0.6 mg/dL (0.7-1.3); MAGNESIUM 1.8 mg/dL (1.8-2.4); POTASSIUM 4.1 mmol/L (3.5-5.1)
[2017-10-14 05:16] LABS: HEMATOCRIT 26.8 % (42.0-52.0); HEMOGLOBIN 8.7 gm/dL (14.0-18.0); MCHC 32.5 g/dL (28.0-37.0); RBC 3.35 mil/uL (4.50-6.00); RDW 22.1 % (10.5-14.5); WBC 29.8 thou/uL (4.0-11.0)
[2017-10-14 07:33] VITALS: BP 113/73
[2017-10-14 09:01] LABS: SOURCE THORACENTESIS
[2017-10-14 12:26] VITALS: BP 112/55
[2017-10-14 13:09] LABS: BODY FLUID ALBUMIN 1.3 g/dL (()); BODY FLUID AMYLASE 19 U/L (()); BODY FLUID LDH 515 IU/L (()); BODY FLUID PROTEIN 1.9 g/dL (())
[2017-10-14 15:57] VITALS: BP 106/58
[2017-10-14 19:55] VITALS: BP 107/61
[2017-10-15 04:35] VITALS: BP 110/64
[2017-10-15 06:02] LABS: HEMATOCRIT 26.8 % (42.0-52.0); HEMOGLOBIN 8.8 gm/dL (14.0-18.0); MCH 26.3 pg (26.0-34.0); MCHC 33.1 g/dL (28.0-37.0); MCV 79.6 fL (80.0-100.0); RBC 3.36 mil/uL (4.50-6.00); WBC 17.2 thou/uL (4.0-11.0)
[2017-10-15 06:16] LABS: CREATININE 0.5 mg/dL (0.7-1.3); POTASSIUM 4.1 mmol/L (3.5-5.1)
[2017-10-15 07:15] LABS: BODY FLUID GLUCOSE 38 mg/dL (())
[2017-10-15 07:52] VITALS: BP 116/64
[2017-10-15 12:10] VITALS: BP 108/57
[2017-10-15 16:19] VITALS: BP 106/70
[2017-10-15 19:35] VITALS: BP 118/65
[2017-10-16 03:35] VITALS: BP 114/60
[2017-10-16 07:07] LABS: % SATURATION 12 % (20-39); IRON 14 ug/dL (65-175); TIBC 116 ug/dL (250-450)
[2017-10-16 08:12] LABS: FERRITIN 288 ng/mL (26-388)
[2017-10-16 08:43] VITALS: BP 114/69
[2017-10-16 12:00] VITALS: BP 112/67
[2017-10-16 12:08] LABS: HEMATOCRIT 29.5 % (42.0-52.0); HEMOGLOBIN 9.9 gm/dL (14.0-18.0); MCH 26.7 pg (26.0-34.0); MCHC 33.4 g/dL (28.0-37.0); MCV 80.1 fL (80.0-100.0); RBC 3.69 mil/uL (4.50-6.00); RDW 22.1 % (10.5-14.5); WBC 16.4 thou/uL (4.0-11.0)
[2017-10-16 12:27] LABS: ALBUMIN 1.5 g/dL (3.4-5.0); ANION GAP < 0 mmol/L (7-16); BUN 9 mg/dL (7-18); CALCIUM 7.6 mg/dL (8.5-10.1); CHLORIDE 104 mmol/L (98-107); CO2 36 mmol/L (21-32); CREATININE 0.6 mg/dL (0.7-1.3); GLUCOSE 128 mg/dL (74-106); MAGNESIUM 1.8 mg/dL (1.8-2.4); POTASSIUM 4.2 mmol/L (3.5-5.1); SGOT 25 U/L (15-37); SGPT 29 U/L (30-65); SODIUM 139 mmol/L (136-145); TOTAL BILIRUBIN 0.6 mg/dL (<0.1-1.0); TOTAL PROTEIN 4.2 g/dL (6.4-8.2)
[2017-10-16 16:00] VITALS: BP 116/67
[2017-10-16 20:00] VITALS: BP 99/56
[2017-10-17 04:20] VITALS: BP 126/68
[2017-10-17 07:24] VITALS: BP 108/66
[2017-10-17 07:43] LABS: HEMATOCRIT 25.9 % (42.0-52.0); HEMOGLOBIN 8.6 gm/dL (14.0-18.0); MCH 26.4 pg (26.0-34.0); MCHC 33.1 g/dL (28.0-37.0); MCV 79.7 fL (80.0-100.0); RBC 3.25 mil/uL (4.50-6.00); RDW 21.5 % (10.5-14.5); WBC 13.2 thou/uL (4.0-11.0)
[2017-10-17 07:55] LABS: CALCIUM 7.6 mg/dL (8.5-10.1); CREATININE 0.5 mg/dL (0.7-1.3); POTASSIUM 3.6 mmol/L (3.5-5.1)
[2017-10-17 10:15] LABS: CLARITY CLOUDY; COLOR RED; SOURCE PLEURAL; TOTAL VOLUME 80 mL
[2017-10-17 10:25] LABS: BF NUCLEATED CELLS 2473; BF RBC 27797
[2017-10-17 11:23] VITALS: BP 98/58
[2017-10-17 11:37] LABS: BF MACROPHAGE 3; BF NEUTROPHILS 88
[2017-10-17 15:17] VITALS: BP 113/63
[2017-10-17 19:49] VITALS: BP 112/60
[2017-10-18 04:35] VITALS: BP 105/60
[2017-10-18 05:21] LABS: HEMATOCRIT 25.1 % (42.0-52.0); HEMOGLOBIN 8.4 gm/dL (14.0-18.0); MCH 26.6 pg (26.0-34.0); MCHC 33.4 g/dL (28.0-37.0); MCV 79.7 fL (80.0-100.0); RBC 3.15 mil/uL (4.50-6.00); WBC 10.8 thou/uL (4.0-11.0)
[2017-10-18 05:34] LABS: CREATININE 0.4 mg/dL (0.7-1.3); MAGNESIUM 2.1 mg/dL (1.8-2.4); POTASSIUM 3.5 mmol/L (3.5-5.1)
[2017-10-18 07:35] VITALS: BP 120/73
[2017-10-18 11:11] VITALS: BP 105/59; BP 132/82
[2017-10-18 17:18] VITALS: BP 102/78
[2017-10-18 19:20] VITALS: BP 133/64
[2017-10-19 03:50] VITALS: BP 126/62
[2017-10-19 05:47] LABS: HEMATOCRIT 26.4 % (42.0-52.0); HEMOGLOBIN 8.6 gm/dL (14.0-18.0); MCH 26.2 pg (26.0-34.0); MCHC 32.7 g/dL (28.0-37.0); MCV 80.2 fL (80.0-100.0); RBC 3.29 mil/uL (4.50-6.00); RDW 22.3 % (10.5-14.5); WBC 12.6 thou/uL (4.0-11.0)
[2017-10-19 05:58] LABS: CALCIUM 8.1 mg/dL (8.5-10.1); CREATININE 0.5 mg/dL (0.7-1.3); POTASSIUM 3.5 mmol/L (3.5-5.1)
[2017-10-19 07:16] VITALS: BP 115/97
[2017-10-19 07:54] VITALS: BP 115/97
[2017-10-19] MEDS ORDERED: CIPROFLOXACIN250 M2 PO (14:39)
[2017-10-19 17:21] VITALS: BP 115/97
== END 2017-10-19 20:00 | disposition home health service (06) | DRG 871 ==
LOC: ER 11:11 → EROBS 13:21 → 3W 13:21
PROVIDERS: Internal Medicine; Internal Medicine Hematology & Oncology; Physician Assistant; Specialist
PROC: 3E0L3GC Introduction of Other Therapeutic Substance into Pleural Cavity, Percutaneous Approach (ICD-10-PCS; principal; 2017-10-15)
PROC: 0WP9X3Z Removal of Infusion Device from Right Pleural Cavity, External Approach (ICD-10-PCS; principal; 2017-10-15)
PROC: 0W9930Z Drainage of Right Pleural Cavity with Drainage Device, Percutaneous Approach (ICD-10-PCS; 2017-10-15)
DX: A41.9 Sepsis, unspecified organism (principal); J15.1 Pneumonia due to Pseudomonas; R65.21 Severe sepsis with septic shock; C85.90 Non-Hodgkin lymphoma, unspecified, unspecified site; J90 Pleural effusion, not elsewhere classified; R64 Cachexia; K59.00 Constipation, unspecified; G47.00 Insomnia, unspecified; E78.5 Hyperlipidemia, unspecified; I25.10 Atherosclerotic heart disease of native coronary artery without angina pectoris; F39 Unspecified mood [affective] disorder; E03.9 Hypothyroidism, unspecified; N40.0 Benign prostatic hyperplasia without lower urinary tract symptoms; D64.9 Anemia, unspecified; G47.9 Sleep disorder, unspecified; B96.5 Pseudomonas (aeruginosa) (mallei) (pseudomallei) as the cause of diseases classified elsewhere; I10 Essential (primary) hypertension; Z88.1 Allergy status to other antibiotic agents; Z88.2 Allergy status to sulfonamides; Z88.8 Allergy status to other drugs, medicaments and biological substances; Z95.5 Presence of coronary angioplasty implant and graft; Z79.899 Other long term (current) drug therapy; Z68.24 Body mass index [BMI] 24.0-24.9, adult
CPT/HCPCS: 10879

== ENCOUNTER 2017-10-27 11:28 | Inpatient (IN) | payer OTHER ==
[~2017-10-27] VITALS: Ht 170.2 cm; Wt 54.9 kg
--- NOTE | ~2017-10-27 | EKG ---
[address] [place] [address] ELECTROCARDIOGRAM REPORT Name: SCAR DOOLEY Room #: 170-8 ADM IN M.R.#: [id number] Admission: 10/27/17 Attend Phys: Trent Bullock Discharge: Date of : 33 Report #: [id number] THIS REPORT FOR: //name// [facility] ED Test Date: 2017-10-27 Test Time: 12:07:04 Pat Name: SCAR DOOLEY Department: Room: Gender: M Channel Rougher: JENN : 1935 Requested By: Syl Fang Order Number: [id number] MD: Luis Sewell Measurements Intervals [place] Rate: 81 P: 8 [place]: 167 QRS: -15 QRSD: 90 T: 32 QT: 454 QTc: 527 Interpretive Statements Sinus rhythm Probable left ventricular hypertrophy Baseline wander in lead(s) III Compared to ECG 10/11/2017 11:27:21 Sinus tachycardia no longer present Electronically Signed On 10-27-2017 15:56:07 CDT by Luis Sewell [email or web address] <ELECTRONICALLY SIGNED> By: Luis Sewell MD 10/27/17 1556 1207 1207 Luis Sewell MD /MARGARITA
[~2017-10-27 11:28] MED LIST changes: +CIPROFLOXACIN250 M2 PO
[2017-10-27 11:40] VITALS: BP 104/55
[2017-10-27 12:39] LABS: HEMOGLOBIN 8.7 gm/dL (14.0-18.0); MCV 81.3 fL (80.0-100.0); WBC 8.4 thou/uL (4.0-11.0)
[2017-10-27 12:41] LABS: HEMATOCRIT 26.4 % (42.0-52.0); MCH 26.6 pg (26.0-34.0); MCHC 32.8 g/dL (28.0-37.0); PLATELET COUNT 220 thou/uL (150-400); RBC 3.25 mil/uL (4.50-6.00); RDW 24.5 % (10.5-14.5)
[2017-10-27 12:49] LABS: ANION GAP 0 mmol/L (7-16); BUN 7 mg/dL (7-18); CALCIUM 7.7 mg/dL (8.5-10.1); CHLORIDE 101 mmol/L (98-107); CO2 37 mmol/L (21-32); CREATININE 0.5 mg/dL (0.7-1.3); GLUCOSE 119 mg/dL (74-106); POTASSIUM 3.7 mmol/L (3.5-5.1); SODIUM 138 mmol/L (136-145)
[2017-10-27 12:58] LABS: ALBUMIN 1.6 g/dL (3.4-5.0); LIPASE 63 U/L (73-393); SGOT 23 U/L (15-37); SGPT 19 U/L (30-65); TOTAL BILIRUBIN 0.2 mg/dL (<0.1-1.0); TOTAL PROTEIN 4.1 g/dL (6.4-8.2); TROPONIN-I < 0.04 ng/mL (<0.06)
[2017-10-27 13:06] LABS: ABSOLUTE NEUTROPHILS 7.3 thou/uL (1.4-8.2); ANISOCYTOSIS 2+; MICROCYTES 2+; PLATELET ESTIMATE NORMAL
[2017-10-27 13:46] LABS: URINE BILIRUBIN NEGATIVE (Negative); URINE BLOOD NEGATIVE (Negative); URINE CLARITY CLEAR; URINE COLOR YELLOW; URINE GLUCOSE-RANDOM* NEGATIVE (Negative); URINE KETONES NEGATIVE (Negative); URINE LEUKOCYTES NEGATIVE (Negative); URINE NITRITE NEGATIVE (Negative); URINE PROTEIN (DIPSTICK) NEGATIVE (Negative); URINE SPECIFIC GRAVITY 1.015 (1.005-1.035); URINE UROBILINOGEN 0.2 E.U./dl (0.2-1.0)
[2017-10-27 13:49] LABS: INR 1.1; PROTIME 11.3 Seconds (9.3-11.4)
[2017-10-27 15:25] LABS: TSH 24.853 uIU/mL (0.358-3.740)
[2017-10-27 16:23] VITALS: BP 135/60
[2017-10-27 17:42] VITALS: BP 135/60
[2017-10-27 17:58] VITALS: BP 144/62
[2017-10-27 19:47] VITALS: BP 126/67
[2017-10-28 04:28] VITALS: BP 135/68
[2017-10-28 08:00] VITALS: BP 120/34
[2017-10-28 09:39] VITALS: BP 120/34
[2017-10-28 19:18] VITALS: BP 99/52
[2017-10-29 04:00] VITALS: BP 101/62
[2017-10-29 08:00] VITALS: BP 110/55
[2017-10-29 10:33] VITALS: BP 110/55
[2017-10-29 11:36] VITALS: BP 110/55
== END 2017-10-29 14:30 | disposition home health service (06) | DRG 840 ==
LOC: ER 11:28 → EROBS 14:29 → 4E 14:29
PROVIDERS: Hospitalist; Nurse Practitioner Family
DX: C85.93 Non-Hodgkin lymphoma, unspecified, intra-abdominal lymph nodes (principal); E43 Unspecified severe protein-calorie malnutrition; J91.0 Malignant pleural effusion; Z68.1 Body mass index [BMI] 19.9 or less, adult; E03.9 Hypothyroidism, unspecified; M43.8X4 Other specified deforming dorsopathies, thoracic region; I10 Essential (primary) hypertension; Z79.02 Long term (current) use of antithrombotics/antiplatelets; Z79.899 Other long term (current) drug therapy; Z88.1 Allergy status to other antibiotic agents; Z88.2 Allergy status to sulfonamides
CPT/HCPCS: 10183

== ENCOUNTER → 2017-11-16 | Outpatient (CLI) | payer OTHER ==
[2017-11-16 11:08] VITALS: BP 113/58
== END | disposition home or self-care (01) ==
LOC: SPEC 10:35
DX: T85.898A Other specified complication of other internal prosthetic devices, implants and grafts, initial encounter (principal); I10 Essential (primary) hypertension; K21.9 Gastro-esophageal reflux disease without esophagitis; Z85.72 Personal history of non-Hodgkin lymphomas; Z88.2 Allergy status to sulfonamides; Z98.890 Other specified postprocedural states; Z88.8 Allergy status to other drugs, medicaments and biological substances; Z79.899 Other long term (current) drug therapy

== ENCOUNTER → 2018-02-02 | Outpatient (CLI) | payer OTHER | LOC: RAD 14:06 | DX: J98.11 Atelectasis (principal); J90 Pleural effusion, not elsewhere classified; R91.8 Other nonspecific abnormal finding of lung field ==

== ENCOUNTER 2018-03-17 10:38 | Inpatient (IN) | payer OTHER ==
[~2018-03-17] VITALS: Ht 170.2 cm; Wt 48.5 kg
--- NOTE | ~2018-03-17 | HC ---
[facility] [place] [address] CONSULTATION Name: SCAR DOOLEY Room #: 419-P ADM IN M.R.#: [id number] Admission: 03/17/18 Attend Phys: Tristian Martinez DO Discharge: Date of : 33 Report #: [id number] THIS REPORT FOR: //name// CC: Tristian Waldron Palliative Care Consultation REQUESTING PHYSICIAN: Tristian Martinez DO CHIEF COMPLAINT: Lymphoma. HISTORY OF PRESENT ILLNESS: The patient is an 82-year-old male who presented initially to [facility] on 03/17. He had had worsening shortness of breath, diarrhea times 3 days, found to have right pleural effusion and likely lymphoma-associated mass in that lung. The patient subsequently has had hypoxic respiratory failure and has been treated for dehydration as well. The patient is Mauritanian speaking only and I have discussed with one of his daughters who is Danish speaking with regards to possible future care. He is currently denying significant pain, significant air hunger. I know that his desire is to return home with palliative care options if he is to choose those options. PAST MEDICAL HISTORY: Lymphoma, anxiety, depression, coronary artery disease, gastritis. MEDICATIONS: Plavix, Zantac, Celexa, Lasix, Ativan, levothyroxine, Flomax, finasteride, Lipitor. SOCIAL HISTORY: Former smoker, has 8 children and spouse who is living. The three of the children appear to be most decision makers for him at this time. SURGICAL HISTORY: Right Pleur-evac with right port hernia repair, cystoscopy, prostate surgery. ALLERGIES: SULFA. CODE STATUS: Currently full code. REVIEW OF SYSTEMS: Again, difficult to obtain at this time, although I can tell you that he denies significant pain. It is well controlled. He denies significant air hunger. He is currently wearing oxygen. Denies nausea, vomiting, constipation, diarrhea. PHYSICAL EXAMINATION: VITAL SIGNS: Temperature 36.9, pulse 79, respirations 16, blood pressure 132/65, 99% on nasal cannula. [facility] [address] [place] [address] CONSULTATION Name: VERONICA DOOLEYO Room #: 419-P [facility] IN M.R.#: [id number] Admission: 03/17/18 Attend Phys: Tristian Martinez DO Discharge: Date of : 33 Report #: [id number] GENERAL: The patient is alert. He is oriented time 3 according to his daughter. He is in no acute distress. HEENT: Extraocular muscles appear to be intact. No scleral icterus. No conjunctival injection. ABDOMEN: He does have some mild tenderness initially, but he states it is extremely mild. He has diminished bowel sounds, but otherwise soft and nondistended. CARDIOVASCULAR: Regular rate and rhythm without murmur. LUNGS: He has diffuse wheezing noted. He also has some rales in the left and right lungs throughout. LABORATORY DATA: Hemoglobin 8.8, white blood cells 2.9, platelets 92. ASSESSMENT AND PLAN: 1. Lymphoma. At this time, he is status post chemotherapy. However, he continues to have generalized deconditioning and worsening of his overall physical health status. Family is understanding of this and I did spend approximately 35 minutes in discussion of advanced care planning with the patient's daughter. I will potentially be talking to the sons as well, as daughter's request to further delineate their wishes, but at this point in time, they were favoring return to home with palliative or hospice care and that appears appropriate given his overall clinical condition. I did address whether or not he had pain or air hunger and he did not appear to be in any distress at this time, can transition to their care at discharge. Hospice care at discharge. Thank you very much for this consultation. We will continue to follow along and see if there are any questions regarding this patient's care, likely to discharge either over this weekend or Wednesday to home with a palliative care service. By: [id number] Maninder Gibbs DO /nt
--- NOTE | ~2018-03-17 | HC ---
[facility] [place] [address] CONSULTATION Name: SCAR DOOLEY Room #: 419-P ADM IN M.R.#: [id number] Admission: 03/17/18 Attend Phys: Tristian Martinez DO Discharge: Date of : 33 Report #: [id number] THIS REPORT FOR: //name// CC: HELIO Restrepo MD REASON FOR CONSULTATION: History of lymphoma. HISTORY OF PRESENT ILLNESS: The patient is an 82-year-old gentleman who does not speak hardly any Chinese though we did see Sandra a couple of times while I was talking with him. Per the chart, he had been brought in. Supposedly, he had diarrhea several days ago. He had had weakness and fallen and had decreased mentation. Here, it is thought he might have pneumonia and possibly that he might have an early sepsis, we had cultures and antibiotics begun. The patient is resting comfortably in a medical bed. He is a little slow to wake up, but does open his eyes and look around and nod his head to a few simple questions like pain and shortness of air. He appears to be carpal this time, discussed with the nurse also. Note that no family members are available at this time. 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 Supposedly, he has been responding to palliative rituximab that he has been getting in the office, last received about [address] Marinelli has discussed multiple times with him and his family that this also would be very appropriate to consider palliative care/hospice. He and his family have not wished to pursue that option. He also has a history of hypothyroidism, hyperlipidemia. Also, he has a pleural mass/infiltrate that has been followed by other and originally his lymphoma had been low grade; also history of coronary artery disease with stents, on Plavix, history of mood disorders, also sleep disorder, takes a large dose of Ativan 5 mg at night. Also hypothyroid, on replacement. Also some bladder difficulties, hyperlipidemia in the past, history of surgery, insomnia, hernia, diffuse gastritis in the past, hypertension in the past, had a Pleur-Evac placed that had become infected in the past. FAMILY HISTORY: Nothing new per chart. SOCIAL HISTORY: Nonsmoker, no significant alcohol. 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 ALLERGIES: Reportedly had troubles with CIPRO, BACTRIM, and THOSE DRUGS. MEDICATIONS: At this time in the hospital include pantoprazole 20 daily, lorazepam 5 mg at bedtime p.r.n., guaifenesin 600 b.i.d., Lovenox 30 at bedtime, [facility] [address] [place] [address] CONSULTATION Name: MIAHSCAR Room #: 419-P ADM IN M.R.#: [id number] Admission: 03/17/18 Attend Phys: Tristian Martinez DO Discharge: Date of : 33 Report #: [id number] azithromycin 500 mg daily, Tylenol p.r.n., Zofran p.r.n. PHYSICAL EXAMINATION: GENERAL: The patient appears his stated age. VITAL SIGNS: His height is 5 feet 7 inches, 170.2 cm. Weight is 107 pounds or 48.5 kg. Blood pressure is 152/60, O2 sat 100, respirations 18, pulse 75, temperature 98.2. MOOD: The patient is slow to wake up, appears to be sort of sleepy, but appears to be pleasant, can say a few words including Sandra and also nods his head to some simple questions. Family not present. HEENT: Oropharynx clear, without erythema, erythroplakia. Eyes show no obvious large enlarging masses. NECK: Without lymph nodes. BACK: Without lymph nodes. HEART: Seems mostly clear though at the right base, there are some decreased breath sounds and perhaps some dullness. ABDOMEN: Scaphoid, no masses. EXTREMITIES: Very cachectic, no edema. Groin without lymph nodes. LABORATORY REVIEW: Shows a BUN of 20, creatinine of 0.9. Liver functions recently normal with an AST of 19, alkaline phosphatase 85, albumin of 3.1. Recent white count of 2.9, which is sort of low for the patient in the past. He had been in the 10 and 5 range. Hemoglobin 8.8, which is slightly lower than it had been. MCV of 86.5, platelets of 92. Note that back in October, it had been 220. Differential shows slight increase in bands. Absolute neutrophils will be 2100. UA did not have any nitrites or bacteria or white cells. IMAGING DATA: Imaging done this admission include a portable chest x-ray. This had unchanged appearance from 02/02/2018 of the right pleural thickening and possibly right pleural effusion or pleural based mass. CT head did not show any acute intracranial process. ASSESSMENT AND PLAN: 1. History of diffuse large B cell triple hit lymphoma, had been on rituximab with apparent stability of known past disease around the orbits, no obvious progression at this time. We will continue following. Note that the patient has been offered hospice in the past by Dr. Marinelli if I understand correctly. 2. Mental status change and recent diarrhea. Agree with cultures and antibiotics and supportive measures and thus the patient wishes to go with palliative care. 3. Hypothyroid, replace. 4. Statins replaced. 5. History of coronary artery disease with stents. Continue his current medications. 6. History of gastritis. Agree with proton pump inhibitor prophylaxis. 7. Clot prophylaxis, Lovenox. [facility] [address] [place] [address] CONSULTATION Name: MIAHSCAR Room #: 419-P ADM IN .R.#: [id number] Admission: 03/17/18 Attend Phys: Tristian Martinez DO Discharge: Date of : 33 Report #: [id number] 8. Pneumonia. Agree with antibiotics and cultures. Note that interventional radiology has been consulted for consideration of aspiration. 9. Prognosis in general fairly poor. We will defer to others. <ELECTRONICALLY SIGNED> By: Kingston Hardwick MD 03/19/18 0833 [id number] Kingston Hardwick MD /nt
--- NOTE | ~2018-03-17 | EKG ---
[address] [address] ELECTROCARDIOGRAM REPORT Name: VERONICA DOOLEYO Room #: 419-P [facility] IN M.R.#: [id number] Admission: 03/17/18 Attend Phys: Tristian Martinez DO Discharge: 03/19/18 Date of : 33 Report #: [id number] THIS REPORT FOR: //name// [facility] ED Test Date: 2018-03-17 Test Time: 10:53:06 Pat Name: SCAR DOOLEY Department: Room: 419 Gender: M Whipped Topping Supervisor: TAD : 1935 Requested By: Antoinette Lerner Order Number: [id number] MD: Luis Sewell Measurements Intervals [place] Rate: 74 P: 0 [place]: 180 QRS: -28 QRSD: 92 T: 65 QT: 440 QTc: 489 Interpretive Statements Sinus rhythm LVH with secondary repolarization abnormality Compared to ECG 10/27/2017 12:07:04 Early repolarization now present Electronically Signed On 03-21-2018 17:01:46 CDT by Luis Sewell [email or web address] <ELECTRONICALLY SIGNED> By: Luis Sewell MD 03/21/18 1884 [id number] 1053 Luis Sewell MD /EPI
[2018-03-17 10:58] VITALS: BP 118/57
[2018-03-17 12:15] LABS: HEMATOCRIT 25.4 % (42.0-52.0); HEMOGLOBIN 8.8 gm/dL (14.0-18.0); MCH 30.1 pg (26.0-34.0); MCHC 34.8 g/dL (28.0-37.0); MCV 86.5 fL (80.0-100.0); RBC 2.94 mil/uL (4.50-6.00); RDW 17.7 % (10.5-14.5); WBC 2.9 thou/uL (4.0-11.0)
[2018-03-17 12:17] LABS: URINE BILIRUBIN NEGATIVE (Negative); URINE BLOOD NEGATIVE (Negative); URINE CLARITY CLEAR; URINE COLOR YELLOW; URINE GLUCOSE-RANDOM* NEGATIVE (Negative); URINE KETONES NEGATIVE (Negative); URINE LEUKOCYTES-REFLEX NEGATIVE (Negative); URINE NITRITE-REFLEX NEGATIVE (Negative); URINE PROTEIN (DIPSTICK) NEGATIVE (Negative); URINE SPECIFIC GRAVITY 1.025 (1.005-1.035); URINE UROBILINOGEN 0.2 E.U./dl (0.2-1.0)
[2018-03-17 12:25] LABS: ANION GAP 1 mmol/L (7-16); BUN 20 mg/dL (7-18); CHLORIDE 102 mmol/L (98-107); CO2 37 mmol/L (21-32); CREATININE 0.9 mg/dL (0.7-1.3); GLUCOSE 99 mg/dL (74-106); POTASSIUM 3.9 mmol/L (3.5-5.1); SODIUM 140 mmol/L (136-145)
[2018-03-17 12:34] LABS: ALBUMIN 3.1 g/dL (3.4-5.0); SGOT 19 U/L (15-37); SGPT 15 U/L (30-65); TOTAL BILIRUBIN 0.7 mg/dL (<0.1-1.0); TROPONIN-I <0.06 ng/mL (<0.06)
[2018-03-17 13:14] LABS: ABSOLUTE NEUTROPHILS 2.1 thou/uL (1.4-8.2); METAMYELOCYTES 2 %; PLATELET COUNT 92 thou/uL (150-400); PLATELET ESTIMATE DECREASED
[2018-03-17 15:52] VITALS: BP 135/68
[2018-03-17 16:38] VITALS: BP 127/54
[2018-03-17 20:00] VITALS: BP 126/62
[2018-03-18 06:19] VITALS: BP 152/60
[2018-03-18 08:27] VITALS: BP 132/65
[2018-03-18 15:40] VITALS: BP 134/69
[2018-03-18 19:10] VITALS: BP 139/57
[2018-03-19 03:45] VITALS: BP 157/60
[2018-03-19 07:01] LABS: HEMATOCRIT 24.5 % (42.0-52.0); HEMOGLOBIN 8.4 gm/dL (14.0-18.0); MCH 30.1 pg (26.0-34.0); MCHC 34.4 g/dL (28.0-37.0); MCV 87.3 fL (80.0-100.0); RBC 2.81 mil/uL (4.50-6.00); RDW 17.8 % (10.5-14.5); WBC 2.8 thou/uL (4.0-11.0)
[2018-03-19 07:08] LABS: CREATININE 0.8 mg/dL (0.7-1.3); POTASSIUM 3.7 mmol/L (3.5-5.1)
[2018-03-19 07:30] VITALS: BP 150/61
[2018-03-19 12:21] VITALS: BP 150/61
== END 2018-03-19 13:51 | disposition home or self-care (01) | DRG 840 ==
LOC: ER 10:38 → 4E 14:30 → EROBS 14:30 → 4E 16:39
PROVIDERS: Physician Assistant; Student in an Organized Health Care Education/Training Program
DX: C83.30 Diffuse large B-cell lymphoma, unspecified site (principal); J18.9 Pneumonia, unspecified organism; D61.818 Other pancytopenia; E86.0 Dehydration; I25.10 Atherosclerotic heart disease of native coronary artery without angina pectoris; F32.9 Major depressive disorder, single episode, unspecified; F41.9 Anxiety disorder, unspecified; D63.8 Anemia in other chronic diseases classified elsewhere; G47.9 Sleep disorder, unspecified; M62.84 Sarcopenia; R19.7 Diarrhea, unspecified; J32.9 Chronic sinusitis, unspecified; E03.9 Hypothyroidism, unspecified; E78.5 Hyperlipidemia, unspecified; I10 Essential (primary) hypertension; Z99.81 Dependence on supplemental oxygen; Z95.5 Presence of coronary angioplasty implant and graft; I25.2 Old myocardial infarction; Z87.891 Personal history of nicotine dependence; Z79.02 Long term (current) use of antithrombotics/antiplatelets; Z79.899 Other long term (current) drug therapy; Z88.1 Allergy status to other antibiotic agents; Z88.2 Allergy status to sulfonamides; Z92.21 Personal history of antineoplastic chemotherapy
CPT/HCPCS: 10183